=== PATIENT | female | born 1945 | race American Indian/Alaskan Native ===

== ENCOUNTER 2018-01-15 06:25 | Day surgery (SDC) | payer BC, OTHER ==
[~2018-01-15] VITALS: Ht 157.5 cm; Wt 72.1 kg
[~2018-01-15 06:25] MED LIST: ASPIRIN EC81 MG PO; CYCLOBENZAPRINE10 MG PO; DICLOFENAC SODI75 MG PO; DILTIAZEM ER120 M2 PO; LEVOTHYROXINE112 MCG PO; LISINOPRIL40 MG PO; METFORMIN HCL500 MG PO; SIMVASTATIN10 MG PO; TRAMADOL HCL50 MG PO
--- NOTE | 2018-01-15 08:15 | NUR ---
01/15/18 0815 Phylicia Castro 0807 PT ARRIVED WITH EYES OPEN AND DROWSY. REORIENTED TO PACU. RESP EVEN AND UNLABORED. PT DENIES PAIN AND NAUSEA. CBG 103. 0811 PT ASLEEP.
--- NOTE | 2018-01-15 09:52 | OR ---
[facility] [address], [place] [address] Signed DATE OF OPERATION: 01/15/2018 SURGEON: Amos Pedroza MD PROCEDURES: Upper and lower endoscopies. PREOPERATIVE DIAGNOSES: 1. Iron deficiency anemia. 2. Hemorrhoids. 3. Constipation. 4. Rectal bleeding. POSTOPERATIVE DIAGNOSES: 1. Mild superficial gastritis. 2. Small internal and external hemorrhoids. PROCEDURES: 1. EGD with CLOtest and biopsies of the antrum and midesophagus. 2. Colonoscopy without biopsy. ESTIMATED BLOOD LOSS: None. INDICATIONS: Mary Carmen is a 72-year-old lady asked to see me for upper and lower endoscopy. Mainly, she has iron deficiency anemia. However, she talks about hemorrhoids and some intermittent constipation associated with rectal bleeding. She tells me there is no family history of colon cancer or polyps. In the office, I gave her a booklet on upper and lower endoscopy. We looked at that together along with the risks including, but not limited to gas bloating, crampy abdominal pain, bleeding, perforation, requiring surgery, and missed diagnosis. We also discussed the need for IV conscious sedation. She had expressed understanding and wished to proceed. DESCRIPTION OF PROCEDURE: Mary Carmen was taken into our endoscopy suite and placed in the supine semi-recumbent position. She was given divided doses of 5 mg of Versed and 150 mcg of fentanyl to cover both cases. The posterior oropharynx was anesthetized with Hurricaine spray. A bite block was utilized for the case. The adult gastroscope was introduced and advanced all the way out into the third portion of the duodenum under direct visualization of Electronically Signed By: AMOS PEDROZA MD 01/15/18 0952 PATIENT NAME: MARY CARMEN JIMÉNEZ OPERATIVE REPORT DATE OF : 45 REPORT #: [id number] PHYSICIAN: AMOS PEDROZA MD PCP: KELL SAUNDERS MD REPORT IS CONFIDENTIAL AND NOT TO BE RELEASED WITHOUT AUTHORIZATION [facility] [address], [place] [address] Signed camera without difficulty. Her duodenum and pyloric channel were unremarkable. The stomach showed very mild superficial erythematous changes. We took a biopsy of the antrum for CLOtest as well as pathologic review. Upon retroflexion of the scope, there was no additional pathology noted up around the GE junction. The scope was withdrawn to the area of the GE junction. There was no gastric or esophageal varices. No evidence of a stricture. She had minimal disruption to the Z-line. No hiatal hernia. As I withdrew the scope, she seemed to have multiple rings in the midesophagus, so we took a biopsy to rule out the eosinophilic esophagitis. After this, the gas was suctioned out and the gastroscope removed. Mary Carmen tolerated her upper endoscopy quite well. Mary Carmen was then rotated into the left lateral decubitus position. She was maintained on IV sedation with Versed and fentanyl. A digital rectal exam was performed. She had just one tiny external hemorrhoid in the anterior midline. The adult colonoscope was introduced and advanced all around into the cecum under direct visualization of camera without difficulty. Her prep was good. The scope was slowly withdrawn. There was no pathology throughout the entire colon or rectum. Once in the rectum, the scope had been retroflexed and she does have some tiny internal hemorrhoid columns. After this, the gas was suctioned out and the colonoscope removed. Mary Carmen tolerated the procedure quite well. RECOMMENDATIONS: I will see Mary Carmen back in my office in 7 to 14 days to review her results. Amos Pedroza MD ALB/MODL /[id number] cc: MD Amos Resendez MD Copies: KELL SAUNDERS MD Electronically Signed By: AMOS PEDROZA MD 01/15/18 0952 PATIENT NAME: MARY CARMEN JIMÉNEZ OPERATIVE REPORT DATE OF : 45 REPORT #: [id number] PHYSICIAN: AMOS PEDROZA MD PCP: KELL SAUNDERS MD REPORT IS CONFIDENTIAL AND NOT TO BE RELEASED WITHOUT AUTHORIZATION [address] [place], [place] [address] Signed AMOS PEDROZA MD ~ Electronically Signed By: AMOS PEDROZA MD 01/15/18 0952 PATIENT NAME: MARY CARMEN JIMÉNEZ OPERATIVE REPORT DATE OF : 45 REPORT #: [id number] PHYSICIAN: AMOS PEDROZA MD PCP: KELL SAUNDERS MD REPORT IS CONFIDENTIAL AND NOT TO BE RELEASED WITHOUT AUTHORIZATION
== END 2018-01-15 08:50 | disposition home or self-care (01) ==
LOC: OPS 06:25 → DS 06:25 → OPS 06:45
PROVIDERS: Colon & Rectal Surgery
PROC: 0DJD8ZZ Inspection of Lower Intestinal Tract, Via Natural or Artificial Opening Endoscopic (ICD-10-PCS; 2018-01-15)
PROC: 0DB28ZX Excision of Middle Esophagus, Via Natural or Artificial Opening Endoscopic, Diagnostic (ICD-10-PCS; principal; 2018-01-15 06:45)
PROC: 0DB78ZX Excision of Stomach, Pylorus, Via Natural or Artificial Opening Endoscopic, Diagnostic (ICD-10-PCS; 2018-01-15 06:45)
DX: K64.4 Residual hemorrhoidal skin tags (principal); K64.8 Other hemorrhoids; K31.9 Disease of stomach and duodenum, unspecified; K21.0 Gastro-esophageal reflux disease with esophagitis; D50.9 Iron deficiency anemia, unspecified; I10 Essential (primary) hypertension; E78.5 Hyperlipidemia, unspecified; E03.9 Hypothyroidism, unspecified; E11.9 Type 2 diabetes mellitus without complications; M46.90 Unspecified inflammatory spondylopathy, site unspecified; Z79.1 Long term (current) use of non-steroidal anti-inflammatories (NSAID); Z79.82 Long term (current) use of aspirin; Z79.899 Other long term (current) drug therapy; Z79.84 Long term (current) use of oral hypoglycemic drugs; Z79.891 Long term (current) use of opiate analgesic; Z88.8 Allergy status to other drugs, medicaments and biological substances; Z88.7 Allergy status to serum and vaccine
CPT/HCPCS: 86677; 99153; G0500; J2250; J3010; J7120

== ENCOUNTER 2020-08-19 23:18 | Emergency (ER) | payer OTHER ==
[~2020-08-19] VITALS: Ht 157.5 cm; Wt 74.8 kg
--- OUTSIDE RECORDS SUMMARY | 2020-08-19 23:22 | XMS ---
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 [place] has no Care Guidelines for this patient. Rachelle VISIT COUNT (12 MO.) 1 [facility] TOTAL 1 NOTE: Visits indicate total known visits. ED/UCC VISIT TRACKING (12 MO.) 08/19/2020 23:19 [facility] [place] TYPE: Emergency COMPLAINT: - DIZZINESS INPATIENT VISIT TRACKING (12 MO.) No inpatient visits to display in this time frame [email or web address]
[2020-08-19] MEDS ORDERED: CALCIUM500 MG PO (23:39)
[2020-08-19] MEDS ORDERED: ROSUVASTATIN CAL5 MG PO (23:39)
[2020-08-19] MEDS ORDERED: FEOSOL325 MG PO (23:40)
[2020-08-19] MEDS ORDERED: FISH OIL 1,0001 EAC2 NG (23:40)
[2020-08-19] MEDS ORDERED: VITAMIN D350 MCG PO (23:40)
[2020-08-19] MEDS ORDERED: VITAMIN C500 M5 PO (23:41)
[2020-08-19] MEDS ORDERED: LISINOPRIL10 MG PO (23:41)
[2020-08-19] MEDS ORDERED: DOK100 MG PO (23:41)
[2020-08-19] MEDS ORDERED: OMEPRAZOLE20 MG PO (23:42)
[2020-08-20] MEDS ORDERED: MECLIZINE HCL25 MG PO (00:56)
--- NOTE | 2020-08-21 13:11 | EKG ---
[facility] [address] [facility] [place], [place] [address] Signed Normal sinus rhythm Nonspecific ST abnormality Abnormal ECG No previous ECGs available Confirmed by MARÍA REYES DO ([id number]) on 08/21/2020 1:11:17 PM Electronically Signed By: MARÍA REYES DO 08/21/20 1311 PATIENT NAME: TINOSOLO VALENTIN Electrocardiogram DATE OF : 45 PHYSICIAN: MARÍA REYES DO REPORT #: [id number] REPORT IS CONFIDENTIAL AND NOT TO BE RELEASED WITHOUT AUTHORIZATION
== END 2020-08-20 01:04 | disposition home or self-care (01) ==
LOC: ED 23:18
DX: R42 Dizziness and giddiness (principal); E11.9 Type 2 diabetes mellitus without complications; I10 Essential (primary) hypertension; E03.9 Hypothyroidism, unspecified; E78.5 Hyperlipidemia, unspecified; D64.9 Anemia, unspecified; K21.9 Gastro-esophageal reflux disease without esophagitis; F17.200 Nicotine dependence, unspecified, uncomplicated; Z88.8 Allergy status to other drugs, medicaments and biological substances; Z79.899 Other long term (current) drug therapy; Z79.891 Long term (current) use of opiate analgesic
CPT/HCPCS: 80053; 83735; 85025; 93005; 93010; 99284-25

== ENCOUNTER 2024-02-27 15:43 | Emergency (ER) | payer OTHER, MEDICARE ==
[~2024-02-27] VITALS: Ht 157.5 cm; Wt 77.4 kg
[~2024-02-27 15:43] MED LIST changes: +CALCIUM500 MG PO; +DOK100 MG PO; +FEOSOL325 MG PO; +FISH OIL 1,0001 EAC2 NG; +LISINOPRIL10 MG PO; +MECLIZINE HCL25 MG PO; +OMEPRAZOLE20 MG PO; +ROSUVASTATIN CAL5 MG PO; +VITAMIN C500 M5 PO; +VITAMIN D350 MCG PO
--- OUTSIDE RECORDS SUMMARY | 2024-02-27 16:01 | XMS ---
PreManage Notification: SOLO JIMÉNEZ Security [employer] Events No recent Security Events currently on file CRITERIA MET - [facility] CARE PROVIDERS There are no care providers on record at this time. [place] has no Care Guidelines for this patient. Rachelle VISIT COUNT (12 MO.) 1 [facility] TOTAL 1 NOTE: Visits indicate total known visits. ED/C VISIT TRACKING (12 MO.) 02/27/2024 15:44 [facility] [place] TYPE: Emergency COMPLAINT: - FALL FACIAL/LEG INJURY INPATIENT VISIT TRACKING (12 MO.) No inpatient visits to display in this time frame [email or web address]
[2024-02-27 16:13] LABS: BASOPHILS 0.8 % (0-2); EOSINOPHILS 5.4 % (0-6); HEMATOCRIT 40.1 % (35.0-50.0); HEMOGLOBIN 13.3 g/dL (12.0-18.0); LYMPHOCYTES 25.7 % (24-44); MCH 29.8 (27-36); MCHC 33.3 g/dl (30-36); MCV 89.5 fl (81-99); MONOCYTES 7.3 % (0-12); NEUTROPHILS 60.8 % (39-80); PLATELET COUNT 287 K/uL (140-440); RBC 4.48 M/ul (4.3-5.7); RDW 13.5 (10.5-15.0)
[2024-02-27] MEDS ORDERED: ASPIRIN81 MG PO (16:23)
[2024-02-27] MEDS ORDERED: AMLODIPINE BESYL5 MG PO (16:24)
[2024-02-27 16:29] LABS: ALBUMIN 3.6 g/dL (3.4-5.0); ALBUMIN/GLOBULIN RATIO 0.97 (1.1-2.4); BILIRUBIN, TOTAL 0.5 ng/dL (0.2-1.0); BUN/CREATININE RATIO 15.21 (6.0-28.6); CALCIUM 9.2 mg/dL (8.5-10.1); CREATININE, SERUM 0.92 mg/dL (0.55-1.02); PROTEIN, TOTAL 7.3 g/dL (6.4-8.2)
[2024-02-27] MEDS ORDERED: HYDROCODON-ACE1 EA10 PO (16:57)
[2024-02-27] MEDS ORDERED: HYDROmorphone HCL 1 MG/ML SYR IV PRN (17:00)
[2024-02-27] MEDS ORDERED: ALBUTEROL SULFATE 0.083% 3 ML VIAL INH ONE (17:15)
[2024-02-27 18:30] VITALS: BP 124/58
== END 2024-02-27 18:25 | disposition home or self-care (01) ==
LOC: ED 15:43
PROVIDERS: Emergency Medicine
DX: S02.2XXA Fracture of nasal bones, initial encounter for closed fracture (principal); S82.092A Other fracture of left patella, initial encounter for closed fracture; S62.315A Displaced fracture of base of fourth metacarpal bone, left hand, initial encounter for closed fracture; S62.317A Displaced fracture of base of fifth metacarpal bone, left hand, initial encounter for closed fracture; E11.9 Type 2 diabetes mellitus without complications; I10 Essential (primary) hypertension; E03.9 Hypothyroidism, unspecified; E78.5 Hyperlipidemia, unspecified; K21.9 Gastro-esophageal reflux disease without esophagitis; G89.29 Other chronic pain; F17.200 Nicotine dependence, unspecified, uncomplicated; W01.0XXA Fall on same level from slipping, tripping and stumbling without subsequent striking against object, initial encounter; Z88.8 Allergy status to other drugs, medicaments and biological substances; Z88.7 Allergy status to serum and vaccine; Z79.84 Long term (current) use of oral hypoglycemic drugs; Z79.899 Other long term (current) drug therapy; Z79.82 Long term (current) use of aspirin
CPT/HCPCS: 29125; 36415; 70450; 70486; 73130; 73560; 80053; 85025; 99284-25; J1170